=== PATIENT | male | born 1980 | race Caucasian/White ===

== ENCOUNTER 2022-06-07 02:55 | Emergency (ER) | payer OTHER ==
[~2022-06-07] VITALS: Ht 170.2 cm; Wt 73.0 kg
[2022-06-07 03:13] VITALS: BP 144/90
[2022-06-07 05:04] LABS: BASOPHILS % 0.7 % (0.0-2.0); EOSINOPHILS % 0.9 % (0.0-5.0); HEMATOCRIT. 38.7 % (42.0-52.0); HEMOGLOBIN. 13.2 g/dL (14.0-18.0); LYMPHOCYTES % 18.4 % (20.0-50.0); MEAN CORPUSCULAR VOLUME 84.8 fL (80.0-94.0); MEAN PLATELET VOLUME 9.1 fl (7.4-10.4); MONOCYTES % 10.5 % (2.0-8.0); NEUTROPHILS % 69.5 % (40.0-76.0); PLATELET 399 x1000/uL (130-400); RED BLOOD CELL COUNT 4.56 mill/uL (4.7-6.1); RED CELL DISTRIBUTION WIDTH 13.8 % (11.6-14.6)
[2022-06-07 05:14] LABS: CHLORIDE 99 mEq/L (98-107)
[2022-06-07 05:18] LABS: ETHANOL BLOOD < 10 mg/dL
[2022-06-07 06:05] LABS: CLARITY URINE TURBID (CLEAR); COLOR URINE DARK YELLOW (YELLOW); KETONES URINE NEGATIVE (NEGATIVE); LEUKOCYTE ESTERASE URINE NEGATIVE (NEGATIVE); NITRITE URINE NEGATIVE (NEGATIVE); OCCULT BLOOD URINE NEGATIVE (NEGATIVE); PH URINE 5.5 (4.5-8.0); PROTEIN URINE 1+ (NEGATIVE); SPECIFIC GRAVITY URINE 1.031 (1.005-1.030)
[2022-06-07 10:31] LABS: *AMPHETAMINES SCREEN URINE PRESUMTIVE POSITIVE (NEGATIVE); *BARBITURATES SCREEN URINE NEGATIVE (NEGATIVE); *BENZODIAZEPINES SCREEN URINE NEGATIVE (NEGATIVE); *COCAINE SCREEN URINE NEGATIVE (NEGATIVE); CANNABINOID URINE SCREEN PRESUMTIVE POSITIVE (NEGATIVE); METHADONE URINE SCREEN NEGATIVE (NEGATIVE); OPIATES URINE SCREEN NEGATIVE (NEGATIVE); PHENCYCLIDINE URINE SCREEN NEGATIVE (NEGATIVE)
== END 2022-06-07 05:12 | disposition left against medical advice (07) ==
LOC: ER 02:55
DX: R51.9 Headache, unspecified (principal)
CPT/HCPCS: 36415; 80048; 80305; 80307; 80320; 80329; 81003; 85025; 99283; G0480

== ENCOUNTER 2024-04-27 10:13 | Emergency (ER) | payer OTHER ==
[~2024-04-27] VITALS: Ht 170.2 cm; Wt 73.0 kg
[2024-04-27 10:38] VITALS: O2SAT 98
[2024-04-27] MEDS ORDERED: IBUP-2029 MT (13:16)
[2024-04-27 13:49] VITALS: BP 133/80; PULSE 80; RESP 16; TEMP 36.83628; O2SAT 98
[2024-04-27] MEDS: ACETAMINOPHEN 325MG TABLET PO ONE (13:49)
== END 2024-04-27 13:51 | disposition home or self-care (01) ==
LOC: ER 10:22
DX: S00.83XA Contusion of other part of head, initial encounter (principal); S40.011A Contusion of right shoulder, initial encounter; M54.2 Cervicalgia; Z86.59 Personal history of other mental and behavioral disorders; W18.30XA Fall on same level, unspecified, initial encounter; Y93.89 Activity, other specified; Y92.89 Other specified places as the place of occurrence of the external cause; Y99.8 Other external cause status
CPT/HCPCS: 70486; 73030; 99284

== ENCOUNTER 2024-08-18 13:50 | Emergency (ER) | payer OTHER ==
[~2024-08-18] VITALS: Ht 170.2 cm; Wt 63.0 kg
[~2024-08-18 13:50] MED LIST: IBUP-2029 MT
[2024-08-18 14:13] VITALS: O2SAT 100
[2024-08-18 14:19] VITALS: BP 102/60; PULSE 69; RESP 12; TEMP 36.6; O2SAT 100
== END 2024-08-18 16:38 | disposition home or self-care (01) ==
LOC: ER 13:50
DX: R56.9 Unspecified convulsions (principal); F20.9 Schizophrenia, unspecified; F31.9 Bipolar disorder, unspecified; Z79.899 Other long term (current) drug therapy
CPT/HCPCS: 93005; 99283